=== PATIENT | female | born 1955 | race Two or more races ===

== ENCOUNTER → 2017-03-10 | Outpatient (CLI) | payer OTHER ==
[~2017-03-10] MED LIST: ASPI-650 PO; AZIT500T77 PO; CARV3.122 PO; CEFD300C37 PO; FURO40TA6 PO; GABA-826 PO; GLIP5TAB10 PO; INSU100V8 SQ; LOSA1TAB16 PO; LOSA50TA2 PO; METF850T2 PO; SIMV20TA3 PO; SPIR25TA PO
== END | disposition home or self-care (01) ==
LOC: CVU 08:40
PROVIDERS: ATTEND Internal Medicine Cardiovascular Disease
DX: I10 Essential (primary) hypertension (principal); E11.9 Type 2 diabetes mellitus without complications; E78.5 Hyperlipidemia, unspecified
CPT/HCPCS: 93975